=== PATIENT | male | born 1995 | race Caucasian/White ===

== ENCOUNTER 2017-09-14 19:36 | Inpatient (IN) | payer SELFPAY ==
--- NOTE | 2017-09-14 20:08 | PDOC ---
Rapid Medical Evaluation Time Seen by Provider: 09/14/17 20:00 Medical Evaluation: 09/14/17 20:01 The patient presents with a chief complaint of: Abscess to R arm. Pt. seen last night at [facility] for drainage of his abscess. Had I&D. Presents for packing removal. Pt. states he thinks the infection got worse as he now has swelling and redness to his lower arm and upper arm above the abscess. Denies fevers. States he did not get discharge antibiotics. I have performed a brief in-person evaluation of this patient; Pertinent physical exam findings: ambulatory, in no respiratory distress. Redness and warmth to the R forearm. Unable to undress abscess site. I have ordered the following: CBC, CMP, PT/INR, Type and Screen, Blood Cx The patient will proceed to the ED for further evaluation. PCP: Dr. Mac; [facility] 09/14/17 20:09
[2017-09-14 20:33] LABS: BASO % 0.5 % (0-2.0); EOS % 0.5 % (0-4.5); HEMOGLOBIN 15.8 GM/dL (11.7-16.9); MCH 31.1 pg (25.7-33.7); MCHC 33.6 g/dl (32.0-35.9); MEAN CELL VOLUME 92.7 fl (80-96); MEAN PLT VOLUME 9.1 fl (7.5-11.1); MONO % 8.2 % (3.8-10.2); NEUT % 67.8 % (42.8-82.8); PLATELET COUNT 180 K/MM3 (134-434); RBC 5.07 M/mm3 (4.00-5.60); RDW 12.9 % (11.9-15.9); WHITE BLOOD COUNT 11.2 K/mm3 (4.0-10.0)
[2017-09-14 20:44] LABS: INR 1.06 (0.82-1.09)
[2017-09-14 21:28] LABS: ALBUMIN 4.1 g/dl (3.4-5.0); ANION GAP 6 (8-16); BLOOD UREA NITROGEN 13 mg/dL (7-18); CALCIUM 8.7 mg/dL (8.5-10.1); CHLORIDE 104 mmol/L (98-107); CO2 27 mmol/L (21-32); GLUCOSE,RANDOM 120 mg/dL (74-106); SODIUM 137 mmol/L (136-145)
[2017-09-14 21:31] LABS: ALK PHOS 123 U/L (45-117); BILIRUBIN,TOTAL 0.5 mg/dL (0.2-1.0); CREATININE 0.9 mg/dL (0.7-1.3); SGOT/AST 49 U/L (15-37); SGPT/ALT 88 U/L (12-78); TOT PROT 7.7 g/dl (6.4-8.2)
[2017-09-14] MEDS ORDERED: CLINDAMYCIN 600MG PREMIX IVPB 600 MG/50 ML BAG IVPB ONE ×2 (21:38→21:49)
--- NOTE | 2017-09-14 21:48 | PDOC ---
History of Present Illness - General Chief Complaint: Wound Stated Complaint: REMOVAL OF GAUZE FROM ABSCESS Time Seen by Provider: 09/14/17 20:00 - History of Present Illness Initial Comments: 09/14/17 21:39 The patient is a 22 year old right handed male with no significant PMH who presents for evaluation of a right arm infection. The patient reports a right arm abscess that began as a pimple over the past 1 week. He states that he presented to [facility] yesterday evening and had an I&D performed on the abscess and was given one dose of iv antibiotics. Since then, he reports worsening redness, swelling and warmth and pain to the right forearm prompting his presentation to the ED today. He denies fevers, chills, SOB, chest pain, nausea, vomiting, abdominal pain, or changes with urination or bowel movements. Past History - Past Medical History Allergies/Adverse Reactions: Allergies Allergy/AdvReac Type Severity Reaction Status Date / Time No Known Allergies Allergy Verified 09/14/17 20:07 Home Medications: Ambulatory Orders NK [No Known Home Medication] 09/14/17 COPD: No - Immunization History Immunization Up to Date: Yes - Suicide/Smoking/Psychosocial Hx Smoking History: Current every day smoker Have you smoked in the past 12 months: Yes Number of Cigarettes Smoked Daily: 5 Information on smoking cessation initiated: No Hx Alcohol Use: No Drug/Substance Use Hx: No Substance Use Type: None Review of Systems - Review of Systems Comments:: 09/14/17 21:55 Constitutional: No fevers, chills, fatigue, malaise HEENT: No Rhinorrhea, nasal congestion, visual changes Cardiovascular: No chest pain, syncope, palpitations, lightheadedness Respiratory: No Cough, SOB, Hemoptysis, Gastrointestinal: No Abdominal pain, Nausea, Vomiting, Constipation, Diarrhea, Melena Genitourinary: No Dysuria, Frequency, Urgency, Hesitancy, Hematuria, Flank pain Musculoskeletal: No Myalgia, arthralgia Skin: Redness, swelling and warmth to the right forearm. No itching, bruising, pallor Neurologic: No Headache, Dizziness, Numbness, Weakness, or Tingling Psychiatric: No Hallucinations. No SI or HI *Physical Exam - Vital Signs Last Vital Signs Temp Pulse Resp BP Pulse Ox 98.2 F 89 17 133/82 100 09/14/17 20:03 09/14/17 20:03 09/14/17 20:03 09/14/17 20:03 09/14/17 20:03 - Physical Exam Comments: 09/14/17 21:57 General Appearance: Nourished. No Apparent Distress HEENT: No Pharyngeal Erythema, Tonsillar Exudate, Tonsillar Erythema Neck: No Cervical Lymphadenopathy Respiratory/Chest: Lungs Clear, Normal Breath Sounds. No Crackles, Rales, Rhonchi, Wheezing Cardiovascular: Regular Rhythm, Regular Rate. No Murmur, Gallops, Rubs Gastrointestinal/Abdominal: Normal Bowel Sounds, Soft. No Guarding, Rebound, Tenderness Musculoskeletal: No CVA Tenderness Extremity: Drained abscess with packing in place to the right mid forarm with surrounding warmth, errythema and tense swelling extending just above the elbow to just below the wrist with normal range of motion to the right elbow, wrist and hand. Normal Capillary Refill Integumentary: Normal Color, Dry, Warm Neurologic: Fully Oriented, Alert, Normal Mood/Affect, Normal Response, ED Treatment Course - LABORATORY CBC & Chemistry Diagram: 09/14/17 20:27 09/14/17 20:27 - ADDITIONAL ORDERS Additional order review: Laboratory Results 09/14/17 09/14/17 09/14/17 20:27 20:27 20:21 PT with INR 12.00 H INR 1.06 Sodium 137 Potassium 4.0 Chloride 104 Carbon Dioxide 27 Anion Gap 6 L BUN 13 Creatinine 0.9 Creat Clearance w eGFR > 60 Random Glucose 120 H Lactic Acid 1.2 Calcium 8.7 Total Bilirubin 0.5 AST 49 H ALT 88 H Alkaline Phosphatase 123 H Total Protein 7.7 Albumin 4.1 09/14/17 20:27 RBC 5.07 MCV 92.7 MCHC 33.6 RDW 12.9 MPV 9.1 Neutrophils % 67.8 Lymphocytes % 23.0 Monocytes % 8.2 Eosinophils % 0.5 Basophils % 0.5 Medical Decision Making - Medical Decision Making 09/14/17 21:58 The patient is a 22 year old right handed male with no significant PMH who presents for evaluation of a right arm infection. Given the patient's physical exam, it is likely his symptoms are due to a worsening cellulitis due to his abscess and will require iv antibiotics. CBC performed in triage demonstrates an elevated wbc consistent with infection. CMP is unremarkable. The patient will require admission for further management of his symptoms. We will treat with clindamycin here in the ED. We will continue to monitor and reassess. 09/14/17 22:09 We discussed the case with the hospitalist team who accepted the patient for admission. *DC/Admit/Observation/Transfer Diagnosis at time of Disposition: Cellulitis Qualifiers: Site of cellulitis: extremity Site of cellulitis of extremity: upper extremity Laterality: right Qualified Code(s): L03.113 - Cellulitis of right upper limb - Discharge Dispostion Condition at time of disposition: Stable Admit: Yes - Referrals Referrals: Casa Mac MD [Primary Care Provider] - - Patient Instructions - Post Discharge Activity
--- NOTE | 2017-09-14 21:57 | PDOC ---
Attending Attestation - Resident Resident Name: Isra Tam - ED Attending Attestation I have performed the following: I have examined & evaluated the patient, The case was reviewed & discussed with the resident, I agree w/resident's findings & plan, Exceptions are as noted - Physicial Exam PE: 09/14/17 21:55 *Physical Exam General Appearance: Yes: Appropriately Dressed. No: Apparent Distress, Intoxicated HEENT: positive: EOMI, CONNER, Normal ENT Inspection, Normal Voice, TMs Normal, Pharynx Normal. negative: Pale Conjunctivae, Photophobia, Scleral Icterus (R), Scleral Icterus (L) Neck: positive: Trachea midline, Normal Thyroid, Supple. negative: Tender, Rigid, Carotid bruit, Stridor, Lymphadenopathy (R), Lymphadenopathy (L), Thyromegaly Respiratory/Chest: positive: Lungs Clear, Normal Breath Sounds. negative: Chest Tender, Respiratory Distress, Accessory Muscle Use, Labored Respiration, RES, Crackles, Rales, Rhonchi, Stridor, Wheezing, Dullness Cardiovascular: positive: Regular Rhythm, Regular Rate, S1, S2. negative: Edema , JVD, Murmur, Bradycardia, Tachycardia Vascular Pulses: Dorsalis-Pedis (R): 2+, Doralis-Pedis (L): 2+ Gastrointestinal/Abdominal: positive: Normal Bowel Sounds, Flat, Soft. negative : Tender, Organomegaly, Pulsatile Mass, Increased Bowel Sounds, Decreased BS, Distended, Guarding, Rebound, Hernia, Hepatomegaly, Spleenomegaly Lymphatic: negative: Adenopathy, Tenderness Musculoskeletal: positive: Normal Inspection. negative: CVA Tenderness, Decreased Range of Motion Extremity: positive: Normal Capillary Refill, Normal Inspection, Normal Range of Motion, Pelvis Stable. + erythema to dorsum of right forearm, + tenderness packing still in place, some serous drainage negative: Tender, Pedal Edema, Swelling, Erythema Integumentary: positive: Normal Color, Dry, Warm. negative: Cyanotic, Erythema , Jaundice, Rash Neurologic: positive: printer slotter feeder II-XII NML intact, Fully Oriented, Alert, Normal Mood/ Affect, Motor Strength 5/5. negative: EOM Palsy, Facial Droop, Sensory Deficit <Arun Mccall - Last Filed: 09/14/17 21:55> - HPI HPI: 09/14/17 21:59 The patient is a 22 year old male, with no significant past medical history, who presents to the emergency department for evaluation of right arm infection. Patient reports his symptoms began as a pimple to the right forearm about 1 week ago and progressed to an abscess. Patient states he visited [facility] yesterday night, where he had an I&D performed on the abscess. At the time, patient was given one dose of IV antibiotics. Since then, patient reports increased erythema, swelling, warmth, and pain at the site of the abscess. He denies any associated fever, chills, cough, headache, dizziness, nausea, or vomiting. He denies any chest pain, shortness of breath, diaphoresis, or palpitations. He denies any recent travel or sick contacts. Allergies: NKDA - Medical Decision Making 09/14/17 21:59 Documentation prepared by Lauren Hudson, acting as medical records tech for Arun Mccall DO. <Lauren Hudson - Last Filed: 09/14/17 22:00>
--- NOTE | 2017-09-14 22:38 | HP ---
PCP: Casa Mac ([facility]) CHIEF COMPLAINT: Right arm redness and swelling HISTORY OF PRESENT ILLNESS: This is a 22 year old man who comes to the ER complaining of redness and swelling of his right arm. This started about 1 week ago with what he thought was a pimple on his right forearm. He popped it and then developed pain, swelling and redness which worsened over several days. Yesterday, he went to [facility] ER and he says he was given Clindamycin IV and an I&D was performed. Afterwards, he had chills. He was discharged on Clindamycin but because of an issue with the prescription, it could not be filled. Today he noticed the redness was extending and the swelling was increasing, so he came to the ED. He has not had any fevers. PAST MEDICAL HISTORY None PAST SURGICAL HISTORY Circumcision Allergies No Known Allergies Allergy (Verified 09/14/17 20:07) Home Medications Medication Instructions Recorded NK [No Known Home Medication] 09/14/17 Social History: Smoking: Smokes 6 cigarettes/day Alcohol: Does shots once a week Drugs: Quit marijuana 1 month ago Recent Travel: No Family History: Unremarkable REVIEW OF SYSTEMS CONSTITUTIONAL: Present: chills. Absent: fever, diaphoresis, generalized weakness, malaise, loss of appetite, weight change HEENT: Absent: rhinorrhea, nasal congestion, throat pain, throat swelling, difficulty swallowing, mouth swelling, ear pain, eye pain, visual changes CARDIOVASCULAR: Absent: chest pain, syncope, palpitations, lightheadedness, peripheral edema RESPIRATORY: Absent: cough, shortness of breath, dyspnea with exertion, orthopnea, wheezing, stridor, hemoptysis GASTROINTESTINAL: Absent: abdominal pain, abdominal distension, nausea, vomiting , diarrhea, constipation, melena, hematochezia GENITOURINARY: Absent: dysuria, frequency, urgency, hesitancy, hematuria, flank pain MUSCULOSKELETAL: Present: right arm swelling and pain. Absent: arthralgia, joint swelling, back pain, neck pain SKIN: Absent: rash, itching, pallor HEMATOLOGIC/IMMUNOLOGIC: Absent: easy bleeding, easy bruising, lymphadenopathy, frequent infections ENDOCRINE: Absent: unexplained weight gain, unexplained weight loss, heat intolerance, cold intolerance NEUROLOGIC: Absent: headache, focal weakness, paresthesias, dizziness, unsteady gait, seizure, mental status changes, bladder or bowel incontinence PSYCHIATRIC: Absent: anxiety, depression, suicidal or homicidal ideation, hallucinations. PHYSICAL EXAMINATION Vital Signs - 24 hr 09/14/17 20:03 Temperature 98.2 F Pulse Rate 89 Respiratory 17 Rate Blood Pressure 133/82 O2 Sat by Pulse 100 Oximetry (%) GENERAL: Awake, alert, and fully oriented, in no acute distress. HEAD: Normal with no signs of trauma. EYES: Pupils equal, round and reactive to light, extraocular movements intact, sclerae anicteric, conjunctivae clear. EARS, NOSE, THROAT: Ears normal, nares patent, oropharynx clear without exudates. Moist mucous membranes. NECK: Normal range of motion, supple without lymphadenopathy, JVD, or masses. LUNGS: Breath sounds equal, clear to auscultation bilaterally. No wheezes, and no crackles. No accessory muscle use. HEART: Regular rate and rhythm, normal S1 and S2 without murmur, rub or gallop. ABDOMEN: Soft, nontender, not distended, normoactive bowel sounds, no guarding, no rebound, no masses. No hepatomegaly or splenomegaly. MUSCULOSKELETAL: Normal range of motion at all joints. No bony deformities or tenderness. No CVA tenderness. UPPER EXTREMITIES: 2+ pulses, warm, well-perfused. No cyanosis. No clubbing. Open abscess cavity of right forearm with packing and with surrounding erythema extending to right antecubital space and to dorsal surface of right hand. (+) swelling of right forearm. LOWER EXTREMITIES: 2+ pulses, warm, well-perfused. No calf tenderness. No peripheral edema. NEUROLOGICAL: Cranial nerves II-XII intact. Normal speech. Normal gait. PSYCHIATRIC: Cooperative. Good eye contact. Appropriate mood and affect. SKIN: Warm, dry, normal turgor, no rashes or lesions noted, normal capillary refill. Laboratory Results - last 24 hr 09/14/17 09/14/17 09/14/17 20:21 20:27 20:27 WBC 11.2 H RBC 5.07 Hgb 15.8 Hct 47.0 MCV 92.7 MCH 31.1 MCHC 33.6 RDW 12.9 Plt Count 180 MPV 9.1 Neutrophils % 67.8 Lymphocytes % 23.0 Monocytes % 8.2 Eosinophils % 0.5 Basophils % 0.5 PT with INR 12.00 H INR 1.06 Sodium 137 Potassium 4.0 Chloride 104 Carbon Dioxide 27 Anion Gap 6 L BUN 13 Creatinine 0.9 Creat Clearance w eGFR > 60 Random Glucose 120 H Lactic Acid Calcium 8.7 Total Bilirubin 0.5 AST 49 H ALT 88 H Alkaline Phosphatase 123 H Total Protein 7.7 Albumin 4.1 09/14/17 20:27 WBC RBC Hgb Hct MCV MCH MCHC RDW Plt Count MPV Neutrophils % Lymphocytes % Monocytes % Eosinophils % Basophils % PT with INR INR Sodium Potassium Chloride Carbon Dioxide Anion Gap BUN Creatinine Creat Clearance w eGFR Random Glucose Lactic Acid 1.2 Calcium Total Bilirubin AST ALT Alkaline Phosphatase Total Protein Albumin ASSESSMENT/PLAN: This is a 22 year old man with no significant medical history who presented to the ED with redness and swelling of his right forearm x 1 week, worse after one dose of Clindamycin IV and I&D performed yesterday. He has WBC 11.2 but is afebrile. 1. Right forearm abscess with cellulitis - Worse despite I&D done yesterday - Received Clindamycin IV x 1 yesterday but was unable to fill prescription for oral Clindamycin - No evidence of sepsis at this time - Clindamycin 600 mg IV q8h - Follow-up blood cultures Visit type - Emergency Visit Emergency Visit: Yes ED Registration Date: 09/14/17 Care time: The patient presented to the Emergency Department on the above date and was hospitalized for further evaluation of their emergent condition. - New Patient This patient is new to me today: Yes Date on this admission: 09/14/17 - Critical Care Critical Care patient: No Hospitalist Screening - Colonoscopy Questionnaire Colonoscopy Questionnaire: Colonoscopy Questionnaire - Patient: 50 - 75 years old and never had a screening colonoscopy: No History of colon or rectal polyps, or CA: No History of IBD, Crohn's disease or UC: No History of abdominal radiation therapy as a child: No - Relative: 1 with colon or rectal CA, or polyps at age 60 or younger: No Colon or rectal CA diagnosed at age 45 or younger: No Multiple relatives with colon or rectal CA: No - Outcome: Screening Result: Negative Screen
[2017-09-14] MEDS ORDERED: IBUPROFEN 400 MG TABLET (FP) PO PRN (22:57)
[2017-09-14] MEDS ORDERED: ACETAMINOPHEN 325 MG TABLET (FP) PO PRN (22:57)
[2017-09-14] MEDS ORDERED: ONDANSETRON 4 MG/2 ML VIAL IVPUSH PRN (23:00)
[2017-09-15] MEDS: CLINDAMYCIN 600MG PREMIX IVPB 600 MG/50 ML BAG IVPB SCH ×2 (06:37→11:27)
[2017-09-15 07:44] LABS: ANION GAP 10 (8-16); BLOOD UREA NITROGEN 10 mg/dL (7-18); CALCIUM 9.2 mg/dL (8.5-10.1); CHLORIDE 102 mmol/L (98-107); CO2 26 mmol/L (21-32); CREATININE 0.7 mg/dL (0.7-1.3); GLUCOSE,RANDOM 92 mg/dL (74-106); POTASSIUM 4.1 mmol/L (3.5-5.1); SODIUM 138 mmol/L (136-145)
[2017-09-15 08:06] LABS: BASO % 0.5 % (0-2.0); HEMATOCRIT 45.8 % (35.4-49); HEMOGLOBIN 15.4 GM/dL (11.7-16.9); LYMPH % 24.8 % (8-40); MCH 31.2 pg (25.7-33.7); MCHC 33.5 g/dl (32.0-35.9); MEAN CELL VOLUME 92.9 fl (80-96); MEAN PLT VOLUME 9.1 fl (7.5-11.1); MONO % 9.4 % (3.8-10.2); NEUT % 64.3 % (42.8-82.8); PLATELET COUNT 170 K/MM3 (134-434); RBC 4.93 M/mm3 (4.00-5.60); WHITE BLOOD COUNT 9.8 K/mm3 (4.0-10.0)
--- NOTE | 2017-09-15 11:40 | PN ---
Progress Note, Physician Chief Complaint: right arm swelling and pain on iv abx - Current Medication List Current Medications: Active Medications Acetaminophen (Tylenol -) 650 mg PO Q4H PRN PRN Reason: FEVER Clindamycin Phosphate (Cleocin 600 Mg Premix Ivpb -) 600 mg in 50 mls @ 100 mls /hr IVPB Q8H-IV VENKATESH Last Admin: 09/15/17 11:27 Dose: 100 mls/hr Ibuprofen (Motrin -) 400 mg PO Q6H PRN PRN Reason: PAIN Ondansetron HCl (Zofran Injection) 4 mg IVPUSH Q6H PRN PRN Reason: NAUSEA - Objective Vital Signs: Vital Signs Temperature 98.0 F 09/15/17 09:00 Pulse Rate 89 09/15/17 09:00 Respiratory Rate 20 09/15/17 09:00 Blood Pressure 121/74 09/15/17 09:00 O2 Sat by Pulse Oximetry (%) 100 09/15/17 09:00 Constitutional: Yes: Calm Neck: Yes: Trachea Midline Cardiovascular: Yes: Regular Rate and Rhythm, S1, S2 Respiratory: Yes: CTA Bilaterally Gastrointestinal: Yes: Normal Bowel Sounds, Soft Musculoskeletal: Yes: Other (right arm swelling and pain) Neurological: Yes: Alert, Oriented Labs: CBC, BMP 09/15/17 06:15 09/15/17 06:15 INR, PTT INR 1.06 (0.82-1.09) 09/14/17 20:21 Problem List - Problems (1) Cellulitis Assessment/Plan: ID abx iv clindamycin motrin I/D was done at [facility] early ambulation wbc count improved Code(s): L03.90 - CELLULITIS, UNSPECIFIED Qualifiers: Site of cellulitis: extremity Site of cellulitis of extremity: upper extremity Laterality: right Qualified Code(s): L03.113 - Cellulitis of right upper limb
--- NOTE | 2017-09-15 14:47 | CON.ID ---
Consult Consult Specialty:: infectious disease Referred by:: dr ragsdale Reason for Consultation:: forearm abscess - History of Present Illness Chief Complaint: arm swelling History of Present Illness: 22 year old healthy young man admitted after he developed a pimple on his arm last Monday- it became swollen and indurated- he went to [facility] on Monday and had the abscess lanced- he was given one dose of clindamycin and po clinda he didnot fill the prescription yesterdayhe noted swelling and pain of his am he came to ED packing removed and replaced admitted for cellulitis started on clindamycin no prior history of soft tissue abscesses no prior hospitalizations no IVDU 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 +cig no fevers or chills I called [facility] micro- no culture sent hiv negative last year - History Source History Provided By: Patient, Medical Record Limitations to Obtaining History: No Limitations - Alcohol/Substance Use Hx Alcohol Use: Yes (weekends) - Smoking History Smoking history: Current every day smoker Have you smoked in the past 12 months: Yes Aproximately how many cigarettes per day: 9 - Social History Usual Living Arrangement: With Parent ADL: Independent Occupation: hotel breakfast attendant Home Medications - Allergies Allergies/Adverse Reactions: Allergies Allergy/AdvReac Type Severity Reaction Status Date / Time No Known Allergies Allergy Verified 09/14/17 20:07 - Home Medications Home Medications: Ambulatory Orders NK [No Known Home Medication] 09/14/17 Family Disease History - Family Disease History Family History: Unremarkable Review of Systems - Review of Systems Constitutional: reports: No Symptoms, Chills, Diaphoresis, Fever Eyes: reports: No Symptoms HENT: reports: No Symptoms Neck: reports: No Symptoms Cardiovascular: reports: No Symptoms Respiratory: reports: No Symptoms. denies: Cough Gastrointestinal: denies: Abdominal Pain Physical Exam Vital Signs: Vital Signs Temperature 98.0 F 09/15/17 09:00 Pulse Rate 89 09/15/17 09:00 Respiratory Rate 20 09/15/17 09:00 Blood Pressure 121/74 09/15/17 09:00 O2 Sat by Pulse Oximetry (%) 100 09/15/17 09:00 Constitutional: Yes: Well Nourished, No Distress, Calm Eyes: Yes: Conjunctiva Clear HENT: Yes: Atraumatic, Normocephalic Neck: Yes: Supple, Trachea Midline Cardiovascular: Yes: Regular Rate and Rhythm Respiratory: Yes: Regular, CTA Bilaterally Gastrointestinal: Yes: Normal Bowel Sounds, Soft. No: Tenderness, Epigastrium ...Rectal Exam: Yes: Deferred Extremities: Yes: Other (right forearm indurated with 1 cm opening - no purulence, diffuse swelling of the hand FROM of the hand, marked erythema appears improved FROM of the hand) Peripheral Pulses WNL: Yes Labs: CBC, BMP 09/15/17 06:15 09/15/17 06:15 Problem List - Problems (1) Cellulitis Code(s): L03.90 - CELLULITIS, UNSPECIFIED Qualifiers: Site of cellulitis: extremity Site of cellulitis of extremity: upper extremity Laterality: right Qualified Code(s): L03.113 - Cellulitis of right upper limb (2) Abscess of forearm, right Code(s): L02.413 - CUTANEOUS ABSCESS OF RIGHT UPPER LIMB Assessment/Plan wound culture sent arm repacked switch to vancomycin - suspect cMRSA f/u blood cultures arm elevation warm compresses wound care consider surgery consult if arm fails to improve
[2017-09-15] MEDS: VANCOMYCIN 1,000 MG in DEXTROSE 5%-WATER - 250 ML IVPB SCH (15:37)
--- NOTE | 2017-09-15 17:43 | PN ---
Progress Note (short form) - Note Progress Note: Vascular Surgery Pt seen and examined. Right arm Abcess drained at [facility] a couple of days ago. Missed some antibiotics. Now here at [facility]. Dressing changed. Wound looks clean. No signs of any pus. cont IV antibiotics. Pack with iodoform Antonio canales DO
[2017-09-16] MEDS: VANCOMYCIN 1,000 MG in DEXTROSE 5%-WATER - 250 ML IVPB SCH (04:24)
--- NOTE | 2017-09-16 09:27 | PN ---
Progress Note (short form) - Note Progress Note: ID Vancomycin NO complaints Selected Entries 09/16/17 04:00 Temperature 98 F Pulse Rate 68 Respiratory 20 Rate Blood Pressure 131/74 Right arm forearm open wound draining no cellulitis Microbiology 09/14/17 20:27 Blood - Peripheral Venous Blood Culture - Preliminary NO GROWTH OBTAINED AFTER 24 HOURS, INCUBATION TO CONTINUE FOR 4 DAYS. 09/14/17 20:27 Blood - Peripheral Venous Blood Culture - Preliminary NO GROWTH OBTAINED AFTER 24 HOURS, INCUBATION TO CONTINUE FOR 4 DAYS. Laboratory Tests 09/14/17 09/15/17 09/15/17 20:27 06:15 06:15 WBC 9.8 RBC 4.93 Plt Count 170 BUN 10 D Creatinine 0.7 D AST 49 H ALT 88 H Alkaline Phosphatase 123 H Assessment Abscess ? MRSA not a IVDA Plan Switch to Clindamycin 450 tid 5 day Should be HIV tested Prior to discharge Followup outpt [facility]
--- NOTE | 2017-09-16 11:36 | DS ---
Physical Exam: SUBJECTIVE: Patient seen and examined OBJECTIVE: Vital Signs Period Temp Pulse Resp BP Sys/Villela Pulse Ox Last 24 Hr 98 F-98.4 F 68-87 20-20 128-132/63-89 100 PHYSICAL EXAM GENERAL: The patient is awake, alert, and fully oriented, in no acute distress. LUNGS: Breath sounds equal, clear to auscultation bilaterally, no wheezes, no crackles, no accessory muscle use. HEART: Regular rate and rhythm, S1, S2 without murmur, rub or gallop. ABDOMEN: Soft, nontender, nondistended, normoactive bowel sounds, no guarding, no rebound, no hepatosplenomegaly, no masses. EXTREMITIES: 2+ pulses, warm, well-perfused, no edema. Open wound of right forearm with no purulent drainage. There is some surrounding induration and erythema. LABS HOSPITAL COURSE: This is a 22 year old man who presented to the ED on 09/14/17 complaining of redness and swelling of his right forearm which started about 1 week prior with what he thought was a pimple. He popped it and then developed pain, swelling and redness which worsened over several days. He went to [facility] ER and was treated with Clindamycin IV and an I&D was performed. Afterwards, he had chills. He was discharged on Clindamycin but because of an issue with the prescription, it could not be filled. The redness and the swelling increased. He denied fevers. In the ED, he was given Clindamycin IV. He was afebrile and found to have WBC 11.2. On exam, there was a packed wound on his right forearm with surrounding erythema extending to the right antecubital space and to the dorsal surface of the right hand. He was admitted for further IV antibiotics. He was continued on IV Clindamycin. His WBC improved. He remained afebrile. He was seen by ID and Clindamycin was changed to Vancomycin. HIV Ab was ordered and is pending at the time of discharge. He was seen by vascular surgery and iodoform packing was recommended. ID recommended completing 5 days of oral Clindamycin at discharge. He is being discharged on 09/16/17. He is advised to schedule a follow up appointment with his PCP, Dr. Casa Mac, this week. Date of Admission:09/14/17 Date of Discharge: 09/16/17 Minutes to complete discharge: 30 Discharge Summary Reason For Visit: CELLULITIS Current Active Problems Abscess of forearm, right (Acute) Cellulitis (Acute) Condition: Improved - Instructions Diet, Activity, Other Instructions: You were admitted for and abscess and cellulitis of your right arm and treated with IV antibiotics. You may resume your usual activity and diet. A prescription for Clindamycin has been sent to [facility]. You should take this antibiotic 3 times a day until it is completed. You should take acetaminophen or ibuprofen if you have pain. If you develop fevers, chills, drainage from the wound, worsening arm pain/swelling/redness, you should return to the ER. Please schedule an appointment with Dr. Mac this week. Referrals: Casa Mac MD [Primary Care Provider] - 1 Week Disposition: HOME - Home Medications Comprehensive Discharge Medication List: Ambulatory Orders Acetaminophen [Tylenol .Regular Strength -] 650 mg PO Q4H PRN tablet 09/16/17 Clindamycin HCl 3 cap PO TID #45 capsule 09/16/17 Ibuprofen [Motrin -] 400 mg PO Q6H PRN tablet 09/16/17 This patient is new to me today: No Emergency Visit: Yes ED Registration Date: 09/14/17 Care time: The patient presented to the Emergency Department on the above date and was hospitalized for further evaluation of their emergent condition. Critical Care patient: No - Discharge Referral Referred to [facility] No
[2017-09-16 11:40] VITALS: BP 127/72; PULSE 72; TEMP 98
== END 2017-09-16 12:00 | disposition home or self-care (01) | DRG 383 ==
LOC: JER 19:36 → JERBED 22:10 → J7W 09-15 00:49
PROVIDERS: ADMIT Internal Medicine; ATTEND Family Medicine
DX: L03.113 Cellulitis of right upper limb (principal); F17.210 Nicotine dependence, cigarettes, uncomplicated; L02.413 Cutaneous abscess of right upper limb
CPT/HCPCS: 36415; 80048; 80053; 83605; 85025; 85610; 87040; 87070; 87186; 87205; 87389; 99283-25